=== PATIENT | female | born 1990 | race Caucasian/White ===

== ENCOUNTER 2022-07-23 20:18 | Inpatient (IN) | payer MEDICAID ==
[~2022-07-23] VITALS: Ht 149.9 cm; Wt 51.7 kg
[2022-07-23] MEDS ORDERED: ZOLPIDEM TARTRATE 10 MG TABLET PO PRN (20:45)
[2022-07-23] MEDS ORDERED: LORazepam 2 MG TABLET PO PRN (20:45)
[2022-07-23] MEDS ORDERED: HALOPERIDOL 5 MG TABLET PO PRN (20:45)
[2022-07-23] MEDS ORDERED: INFLUENZA VIRUS VACCINE QVS 2022-23 (6MO+)/PF 60 MCG/0.5 ML SYRINGE IM. ONE (21:00)
[2022-07-23 21:15] VITALS: BP 123/76
[2022-07-24 07:28] LABS: EOSINOPHILS % (AUTO) 1.2 % (1.0-6.0); HEMATOCRIT 40.3 % (36-46); HEMOGLOBIN 13.6 g/dL (12.0-16.0); LYMPHOCYTES % (AUTO) 37.2 % (22.0-44.0); MEAN CORPUSCULAR HEMOGLOBIN 31.6 pg (26.0-34.0); MEAN CORPUSCULAR HGB CONC 33.9 G/dL (31.0-37.0); MEAN CORPUSCULAR VOLUME 93 fL (80-100); MONOCYTES # (AUTO) 0.4 K/uL (0.1-1.0); MONOCYTES % (AUTO) 7.5 % (2.0-9.0); NEUTROPHILS # (AUTO) 2.8 K/uL (1.8-7.7); NEUTROPHILS % (AUTO) 53.1 % (40.0-70.0); PLATELET COUNT (AUTO) 279 K/uL (150-450); RED BLOOD CELL COUNT(AUTO) 4.32 MIL/uL (4.00-5.20); RED CELL DISTRIBUTION WIDTH 13.1 % (11.5-14.5)
[2022-07-24 08:27] LABS: ALANINE AMINOTRANSFERASE 35 U/L (12-78); ALBUMIN 3.4 g/dL (3.4-5.0); ALKALINE PHOSPHATASE 62 U/L (46-116); ANION GAP 6 mmol/L (8-16); ASPARTATE AMINOTRANSFERASE 15 U/L (15-37); BILIRUBIN,TOTAL 0.3 mg/dL (0.1-1.0); CALCIUM, TOTAL 9.3 mg/dL (8.8-10.5); CARBON DIOXIDE 28 mmol/L (22-29); CHLORIDE 104 mmol/L (98-107); CHOLESTEROL 151 mg/dL (131-200); FREE T4 (FREE THYROXINE) 1.02 ng/dL (0.76-1.46); GLUCOSE,RANDOM 84 mg/dL (70-110); HCG,QUANTITATIVE < 1 mIU/mL (0-6); HDL CHOLESTEROL 38 mg/dL (40-60); LDL CHOL (CALC.) 92 mg/dL (0-130); SODIUM SERUM 138 mmol/L (136-145); THYROID STIMULATING HORMONE 2.51 uIU/mL (0.36-3.74); TOTAL PROTEIN, SERUM 7.3 g/dL (6.4-8.2); TRIGLYCERIDES 106 mg/dL (15-150); UREA NITROGEN, BLOOD 10 mg/dL (7-18)
[2022-07-24 08:28] LABS: GLOMERULAR FILTR. RATE CALC > 60 mL/min (>60)
[2022-07-24 08:42] VITALS: BP 117/64
[2022-07-24 10:27] VITALS: BP 117/64
[2022-07-24] MEDS: SERTRALINE HCL 50 MG TABLET PO SCH (13:19)
[2022-07-24] MEDS ORDERED: IBUPROFEN 400 MG TABLET PO PRN (15:00)
[2022-07-24] MEDS ORDERED: GuaiFENesin/D-METHORPHAN [SUGAR-FREE] 200-20MG/10 ML SYRUP UDCUP PO PRN (15:00)
[2022-07-24] MEDS ORDERED: MAG HYDROX/AL HYDROX/SIMETH ES 30 ML SUSPENSION UDCUP PO PRN (15:00)
[2022-07-24] MEDS ORDERED: DOCUSATE SODIUM 100 MG CAPSULE PO PRN (15:00)
[2022-07-24] MEDS ORDERED: MAGNESIUM HYDROXIDE SUSPENSION 30 ML UDCUP PO PRN (15:00)
[2022-07-24] MEDS ORDERED: PETROLATUM,WHITE 28 GM JELLY TP PRN (15:00)
[2022-07-24] MEDS ORDERED: ONDANSETRON HCL 4 MG TABLET PO PRN (15:00)
[2022-07-24] MEDS ORDERED: CloNIDine HCL 0.1 MG TABLET PO PRN (15:00)
[2022-07-24] MEDS ORDERED: NICOTINE 14 MG/24 HOUR PATCH TD PRN (15:00)
[2022-07-24] MEDS ORDERED: ALBUTEROL SULFATE HFA 90 MCG/PUFF 8 GM INHALER IH PRN (15:00)
[2022-07-24] MEDS ORDERED: LOPERAMIDE HCL 2 MG CAPSULE PO PRN (15:00)
[2022-07-24] MEDS ORDERED: ACETAMINOPHEN 325 MG TABLET PO PRN (15:00)
[2022-07-24 20:26] VITALS: BP 121/83
[2022-07-24 20:27] VITALS: BP 121/83
[2022-07-25 08:00] VITALS: BP 124/79
[2022-07-25 08:30] VITALS: BP 124/79
[2022-07-25] MEDS: SERTRALINE HCL 50 MG TABLET PO SCH (09:16)
[2022-07-25 20:13] VITALS: BP 123/84
[2022-07-25 20:14] VITALS: BP 123/84
[2022-07-26 07:46] LABS: GLUCOMETER DEV NAME(LOC) POC.BV
[2022-07-26 08:00] VITALS: BP 121/87
[2022-07-26 08:26] VITALS: BP 121/87
[2022-07-26] MEDS: SERTRALINE HCL 50 MG TABLET PO SCH (08:43)
[2022-07-26 20:51] VITALS: BP 131/65
[2022-07-26 21:19] VITALS: BP 120/87
[2022-07-27 08:50] VITALS: BP 140/79
[2022-07-27] MEDS: SERTRALINE HCL 50 MG TABLET PO SCH (09:32)
[2022-07-27] MEDS ORDERED: SERT-439 PO (10:58)
== END 2022-07-27 14:14 | disposition home or self-care (01) | DRG 751 ==
LOC: B2S 20:42
PROVIDERS: ADMIT Psychiatry & Neurology Psychiatry; ATTEND Psychiatry & Neurology Psychiatry
DX: F33.2 Major depressive disorder, recurrent severe without psychotic features (principal); R45.851 Suicidal ideations; F10.10 Alcohol abuse, uncomplicated; Y90.9 Presence of alcohol in blood, level not specified; F41.9 Anxiety disorder, unspecified; G47.00 Insomnia, unspecified; Z81.8 Family history of other mental and behavioral disorders; Z91.51 Personal history of suicidal behavior
CPT/HCPCS: 80053; 80061; 83036; 84439; 84443; 84702; 85025; 90686